=== PATIENT | female | born 1960 | race Caucasian/White ===

== ENCOUNTER 2025-01-13 06:03 | Day surgery (SDC) | payer MEDICARE, OTHER ==
--- NOTE | 2025-01-08 11:11 | ELECTROCARDIOGRAPH REPORT ---
[facility] Test Date: 2025-01-08 Test Time: 11:09:22 Pat Name: MARYBETH GOODSON Department: [facility]-PRE-OP Patient ID: [id number] Room: Gender: F Photograph Printer: : 1960 Requested By: JOVANNI DAVIDSON Order Number: [id number] Reading MD: Dr. DEBRA Cormier Measurements Intervals [place] Rate: 56 P: 22 KS: 166 QRS: 40 QRSD: 98 T: 20 QT: 430 QTc: 416 Interpretive Statements Sinus bradycardia Electronically Signed On 01-08-2025 16:51:[address] DEBRA Cormier Please click the below link to view image of tracing.
[2025-01-08 11:23] LABS: MEAN PLATELET VOLUME 7.7 FL (7.4-10.4); PRE OP HEMATOCRIT 44.4 % (35.0-45.0); PRE OP HEMOGLOBIN 14.6 g/dL (12.0-16.0); PRE OP PLATELET COUNT 296 X10'3 (140-440); PRE OP WHITE BLOOD COUNT 7.3 10'3 (4.8-10.8); RED CELL DISTRIBUTION WIDTH 13.1 % (11.5-14.5)
[2025-01-08 11:48] LABS: CREATININE 0.69 MG/DL (0.40-0.90); PRE OP ALT 24 U/L (30-65); PRE OP ANION GAP 2 (8-16); PRE OP AST 18 U/L (10-37); PRE OP BILIRUB, TOTAL 0.6 MG/DL (0.0-1.0); PRE OP GLUCOSE 96 MG/DL (70-104); PRE OP POTASSIUM 3.9 MMOL/L (3.4-5.1); PRE OP SODIUM 140 MMOL/L (135-145); TOTAL CARBON DIOXIDE 32.8 MMOL/L (24-32); eGFR 85 ML/MIN
[~2025-01-13] VITALS: Ht 154.9 cm; Wt 68.9 kg
[2025-01-13] VITALS (8 sets, daily range): BP systolic 119–156; BP diastolic 74–91; PULSE 46–69; RESP 8–16; TEMP 97.7; O2SAT 97–100
[2025-01-13] MEDS: ceFAZolin 2gm/dext,iso 50mL 50 ML IV ONE (05:30)
[~2025-01-13 06:03] MED LIST: CLOB15CR11 TOP; ESTR10TA4 VG; LEVO100T78 PO
[2025-01-13] MEDS: ringers solution, lacted 1,000 ML IV SCH (06:40)
[2025-01-13] MEDS ORDERED: LIDOcaine 1%/PF 5ML 10 MG/ML VIAL ONE (06:44)
[2025-01-13] MEDS ORDERED: BUPIVAcaine/PF 2.5mg/ml (0.25%) 10ml vial ONE (06:45)
[2025-01-13] MEDS ORDERED: ringers solution, lacted 1,000 ML IV SCH (08:20)
[2025-01-13] MEDS ORDERED: HYDROmorphone/PF 0.2 MG/ML SYRINGE IV PRN ×2 (08:20)
[2025-01-13] MEDS ORDERED: labetalol 20mg/4ml (5mg/ml) syringe IV PRN (08:20)
[2025-01-13] MEDS ORDERED: acetaminophen 1,000mg/100ml IV 100 ML IV PRN (08:20)
[2025-01-13] MEDS ORDERED: hydrALAZINE 20mg/ml inj. IV PRN (08:20)
[2025-01-13] MEDS ORDERED: morphine 4 MG/ML inj SYRINge IV PRN (08:20)
[2025-01-13] MEDS ORDERED: ondansetron/PF 4mg/2ml inj IV PRN (08:20)
[2025-01-13] MEDS: BUPIVAcaine/PF 2.5mg/ml (0.25%) 10ml vial IJ ONE (08:24)
[2025-01-13] MEDS: LIDOcaine 1% 30ml preserv. free vial IJ ONE (08:24)
[2025-01-13] MEDS ORDERED: fentaNYL/PF 50MCG/1 ML 2ML syringe ONE (08:27)
--- NOTE | 2025-01-13 08:27 | HISTORY AND PHYSICAL ---
History & Physical Providers to ~ History of Present Illness Reason for Admit\Complaint: Left scapula mass History of Present Illness Interval history and physical exam Patient here today for elective removal of the subcutaneous tumor of the left upper back/scapula She denies any change in her past medical history since she was seen in the office last month (please see previous history and physical exam for all pert inent details) She is scheduled for excision of a left back/scapula subcutaneous tumor estimated to be about 3-4 cm Allergies: Coded Allergies: avocado (Verified Allergy, Severe, THROAT CLOSES, 01/12/25) Home Medications Home Medications Active Reported Yuvafem (Estradiol) 10 Mcg Tablet 10 Mcg VG SUNDAY AND SUNDAY Clobetasol Emollient 0.05% Crm (Clobetasol Propionate) 0.05 % Cream..g. 1 Applic TOP 3XWEEKLY Levoxyl (Levothyroxine Sodium) 100 Mcg Tablet 1 Tab PO DAILY Exam General: 64-year-old female in no acute HEENT: Distress Chest: Lungs clear to auscultation bilaterally Along the inferior margin of the left scapula there was a mobile and palpable 3- 4 cm subcutaneous tumor This does not appear to be fixed to the underlying muscle or fascial layer There were no overlying skin changes Cardiovascular: Regular rate and rhythm without murmur Abdomen: Soft and nondistended Problems: (1) Subcutaneous mass of back Assessment & Plan: The risks, benefits, and alternatives to excision of a subcutaneous tumor of the left scapula/back were discussed with the patient. Risks include, but are not limited to, bleeding, infection, recurrence and the need for additional surgical procedures. Patient verbalized understanding and wishes to proceed with surgery. We will do so today as scheduled JOVANNI DAVIDSON MD Jan 13, 2025 08:27
[2025-01-13] MEDS ORDERED: midazolam 1 mg/ML 2ml injection ONE (08:46)
[2025-01-13] MEDS ORDERED: dexamethasone sod phosphate 4mg/ml inj. ONE (08:46)
[2025-01-13] MEDS ORDERED: propofol inj 20 ML IV ONE (08:46)
[2025-01-13] MEDS ORDERED: rocuronium 10mg/ml inj IV ONE (08:46)
[2025-01-13] MEDS ORDERED: ondansetron/PF 4mg/2ml inj ONE (08:46)
[2025-01-13] MEDS ORDERED: LIDOcaine 2% (20mg/ml) 5ml vial ONE (08:47)
[2025-01-13] MEDS ORDERED: HYDROcodone/acetaminophen 5mg/325mg tablet PO PRN (09:45)
--- NOTE | 2025-01-13 11:45 | OPERATIVE REPORT ---
Operative Report Providers to CC CC: OSVALDO DAVIDSON MD ~ Date of Procedure: Jan 13, 2025 Pre-Operative Diagnosis: Left subscapular mass Post-Operative Diagnosis Left subscapular, back 3.25 cm subfascial tumor (CPT: 80029) Procedure Performed Excision of soft tissue tumor of the left back/flank, 3.25 cm, subfascial Surgeon: Osvaldo Davidson MD FACS Gold Burnisher None Anesthesiologist: Hiram Noe Type of Anesthesia: General Findings: 3 cm encapsulated subfascial tumor abutting the intercostal muscles Wound class I Complications None Prosthetics\Implants used: None Estimated Blood Loss: Minimal Specimen Removed: Left subscapular back subfascial tumor Description of Procedure: Patient was brought to the operating room and identified by the nursing staff and the attending physician. Patient had general anesthesia induced on the gurney and then placed in the prone padded position. Visible mass in the left subscapular area that had been previously marked was noted. Area at this level was prepped and draped in the standard sterile fashion. Planned surgical incision was made and local anesthetic was infiltrated along this planned incision. Incision was made and deepened down through the subcutaneous tissues. Incision was carried all the way down to the fascial layer. The mass was palpable below the fascial layer. Fascia overlying the ribs just below the left scapula was opened parallel to the ribs. Between ribs abutting the intercostal muscles, a semi encapsulated fatty tumor was encountered. This was circumferentially mobilized and dissected away from the intercostal muscles. This was passed off the field and measured at 3.25 cm in diameter. Fascia was closed as was the wound and skin in layers with absorbable suture. Dermabond was applied. Patient was awakened and taken to the postanesthesia care unit in stable condition. Counts repoted as correct: Yes OSVALDO DAVIDSON MD Jan 13, 2025 11:45
--- NOTE | 2025-01-14 15:23 | PATHOLOGY REPORT ---
[facility] [address] [place] [address] SURGICAL PATHOLOGY REPORT CaseNumber: [id number] Surgeon:Osvaldo Banerjee PA-C CLINICAL INFORMATION CLINICAL INFORMATION: Subcutaneous mass. DIAGNOSIS DIAGNOSIS: SOFT TISSUE, LEFT SUBSCAPULAR; EXCISION - MATURE ADIPOSE TISSUE, CONSISTENT WITH LIPOMA. MICROSCOPIC DESCRIPTION MICROSCOPIC DESCRIPTION: Performed. GROSS DESCRIPTION GROSS DESCRIPTION: Received in a container of formalin labeled with the patient's name, number, and "left subscapular subfascial mass" is an 8 g partially encapsulated excision of fat which measures 3 x 3 x 1.5 cm. Sectioning reveals lobulated mature-appearing adipose tissue without areas of hemorrhage, nodularity, or necrosis. Program Arranger sections are submitted as A1. The time at which the specimen was removed was 0855. The time at which the specimen was placed in formalin was 09. ([facility]) Electronically signed by: Stanislav Castellano, 01/14/2025 2:49:00 PM
== END 2025-01-13 10:40 | disposition home or self-care (01) ==
LOC: PAS 06:03
PROVIDERS: ATTEND Surgery
DX: R22.32 Localized swelling, mass and lump, left upper limb (principal); M79.89 Other specified soft tissue disorders; E11.9 Type 2 diabetes mellitus without complications; E03.9 Hypothyroidism, unspecified; E66.9 Obesity, unspecified; G47.30 Sleep apnea, unspecified; J45.909 Unspecified asthma, uncomplicated; I25.2 Old myocardial infarction; Z79.890 Hormone replacement therapy; Z79.899 Other long term (current) drug therapy; Z68.28 Body mass index [BMI] 28.0-28.9, adult; Z98.890 Other specified postprocedural states; Z91.018 Allergy to other foods
CPT/HCPCS: 23076; 36415; 80053; 82948; 85025; 93005; A4215; A4618; A7000; J1100; J2003; J2250; J2405; J2704; J3010; J3490; J7030; J7120; Z7506; Z7508; Z7512; Z7610

== ENCOUNTER 2025-02-02 05:35 | Day surgery (SDC) | payer MEDICARE, OTHER ==
[~2025-02-02] VITALS: Ht 154.9 cm; Wt 69.5 kg
[~2025-02-02 05:35] MED LIST changes: -CLOB15CR11 TOP; +CLOB15OI21 TOP
[2025-02-02 05:50] VITALS: BP 125/69; PULSE 64; RESP 15; RESP 16; TEMP 96.9; O2SAT 96
[2025-02-02] MEDS: ceFAZolin 2gm/dext,iso 50mL 50 ML IV ONE (06:19)
[2025-02-02] MEDS: ringers solution, lacted 1,000 ML IV SCH (06:19)
[2025-02-02] MEDS ORDERED: LIDOcaine 1% 30ml preserv. free vial ONE (06:44)
[2025-02-02] MEDS ORDERED: BUPIVAcaine 2.5mg/ml inj 50ml vial (contains preservative) ONE (06:44)
[2025-02-02 06:49] LABS: MEAN PLATELET VOLUME 8.3 FL (7.4-10.4); PRE OP HEMATOCRIT 39.5 % (35.0-45.0); PRE OP HEMOGLOBIN 13.2 g/dL (12.0-16.0); PRE OP PLATELET COUNT 275 X10'3 (140-440); PRE OP WHITE BLOOD COUNT 6.4 10'3 (4.8-10.8); RED CELL DISTRIBUTION WIDTH 13.0 % (11.5-14.5)
[2025-02-02 07:09] LABS: CREATININE 0.70 MG/DL (0.40-0.90); PRE OP ALT 19 U/L (30-65); PRE OP ANION GAP 6 (8-16); PRE OP AST 16 U/L (10-37); PRE OP BILIRUB, TOTAL 0.3 MG/DL (0.0-1.0); PRE OP GLUCOSE 102 MG/DL (70-104); PRE OP POTASSIUM 3.6 MMOL/L (3.4-5.1); PRE OP SODIUM 143 MMOL/L (135-145); TOTAL CARBON DIOXIDE 30.3 MMOL/L (24-32); eCRCL 60 ML/MIN; eGFR 84 ML/MIN
--- NOTE | 2025-02-02 07:20 | HISTORY AND PHYSICAL ---
History & Physical Providers to ~ History of Present Illness Reason for Admit\Complaint: Left upper back/scapular/posterior axillary mass History of Present Illness Patient was scheduled to have a left scapular mass removed about three weeks ago. She was taken in the operating room. Prior to surgery, when marking the lesion, the lesion that was marked was not the one she anticipated having removed. While it was in the same geographical area, it was several inches below the mesh she is most concerned about. A 3 x 3 cm lipoma was removed at that time over the inferior scapula, while patient was anticipating having the mass removed from the lateral aspect of her scapula. My mistake was recognized in the office two weeks after surgery. She is here today to have the 2nd lesion removed. She denies any change in her past medical history since she was seen at that previous visit (please see previous history and physical exam for all pertinent details) Allergies: Coded Allergies: avocado (Verified Allergy, Severe, THROAT CLOSES, 01/12/25) Home Medications Home Medications Active Reported Clobetasol Propionate 0.05 % Oint...g. 1 Applic TOP 3XPER WEEK apply to affected area(s) Yuvafem (Estradiol) 10 Mcg Tablet 10 Mcg VG SUNDAY AND SUNDAY Levoxyl (Levothyroxine Sodium) 100 Mcg Tablet 1 Tab PO DAILY ROS ROS Reviewed and negative Exam General: 64-year-old female in no acute distress Chest: Lungs clear to auscultation bilaterally On the mid lateral scapula/posterior axilla is a palpable, mobile mass/subcutaneous tumor. The site is marked with indelible ink Cardiovascular: Regular rate and rhythm without murmurs Diagnostic Data Last Recorded Lab Results: 02/02/25 0630 02/02/25 0630 Problems: (1) Subcutaneous mass of back Assessment & Plan: The risks, benefits, and alternatives to excision of left upper back/posterior axillary subcutaneous tumor were discussed with the patient and her . Risks include, but are not limited to, bleeding, infection, persistent pain and the need for additional surgery. Patient verbalized understanding and wishes to proceed with surgery. We will do so today as scheduled JOVANNI DAVIDSON MD Feb 02, 2025 07:20
[2025-02-02] MEDS ORDERED: fentaNYL/PF 50MCG/1 ML 2ML syringe ONE (07:31)
[2025-02-02] MEDS ORDERED: midazolam 1 mg/ML 2ml injection ONE (07:31)
[2025-02-02] MEDS ORDERED: propofol inj 20 ML IV ONE (07:44)
[2025-02-02] MEDS ORDERED: LIDOcaine 2% (20mg/ml) 5ml vial ONE (07:44)
[2025-02-02] MEDS ORDERED: dexamethasone sod phosphate 4mg/ml inj. ONE (07:47)
[2025-02-02] MEDS: BUPIVAcaine/PF 5 MG/ML 10ML VIAL IJ ONE (08:01)
[2025-02-02] MEDS: LIDOcaine 1% 30ml preserv. free vial IJ ONE (08:01)
[2025-02-02] MEDS ORDERED: ondansetron/PF 4mg/2ml inj ONE (08:15)
[2025-02-02] MEDS ORDERED: HYDROcodone/acetaminophen 5mg/325mg tablet PO PRN (08:25)
--- NOTE | 2025-02-02 08:26 | OPERATIVE REPORT ---
Operative Report Providers to CC: OSVALDO DAVIDSON MD ~ Date of Procedure: Feb 02, 2025 Pre-Operative Diagnosis: Left lateral scapular/posterior axillary subcutaneous tumor Post-Operative Diagnosis 11 x 4 cm, Left lateral scapular/posterior axillary subcutaneous tumor Procedure Performed Excision 11 x 4 cm left lateral scapular/posterior axillary subcutaneous tumor Surgeon: Osvaldo Davidson MD FACS Material Attendant None Anesthesiologist: Rikki Amador Type of Anesthesia: General Findings: Encapsulated, lobular fatty tumor consistent with benign lipoma measuring 11 x 4 cm Complications None Prosthetics\Implants used: None Estimated Blood Loss: Minimal Specimen Removed: Left posterior axillary/lateral scapular subcutaneous 11 x 4 cm subcutaneous tumor Description of Procedure: Patient was brought to the operating room and identified by the nursing staff and the attending physician. Patient was placed supine and general anesthesia was induced. Patient was then moved into the right lateral decubitus position. All bony prominences were padded and secured and an axillary support pad was placed. The marked site in the upper left back associated with the lateral asp ect of the scapula and posterior aspect of the axilla was in the operative field and the anitha was clearly visualized. Using Jesus's lines of cleavage, a planned incision was made and marked with indelible ink. Preoperative antibiotics were given. Local anesthetic was infiltrated after the area was prepped and draped in the standard sterile fashion. Incision was made with scalpel and deepened down through the subcutaneous tissues with electrocautery. An encapsulated fatty tumor was encountered. This traversed anteriorly towards the axilla and posteriorly towards the scapula. It was lobulated and had an irregular shape. Each of the lobules was mobilized and the mass was removed intact measuring 11 x 4 cm. It appeared to be a benign lipoma. The wound was irrigated and hemostasis assured. Incision was closed in layers with absorbable sutures and dressed with Dermabond. Patient was awakened and taken to the postanesthesia care unit in stable condition. Counts repoted as correct: Yes OSVALDO DAVIDSON MD Feb 02, 2025 08:26
[2025-02-02 08:28] VITALS: BP 129/78; PULSE 76; RESP 16; O2SAT 100
[2025-02-02 08:40] VITALS: BP 117/87; PULSE 71; RESP 15; O2SAT 98
[2025-02-02] MEDS ORDERED: rocuronium 10mg/ml inj IV ONE (08:42)
[2025-02-02 08:50] VITALS: BP 135/75; PULSE 65; RESP 16; O2SAT 97
[2025-02-02] MEDS ORDERED: labetalol 20mg/4ml (5mg/ml) syringe IV PRN (08:55)
[2025-02-02] MEDS ORDERED: enalaprilat 1.25mg/ml 2ml vial IV PRN (08:55)
[2025-02-02] MEDS ORDERED: ringers solution, lacted 1,000 ML IV SCH (08:55)
[2025-02-02] MEDS ORDERED: morphine 4 MG/ML inj SYRINge IV PRN (08:55)
[2025-02-02] MEDS ORDERED: HYDROmorphone/PF 0.2 MG/ML SYRINGE IV PRN ×2 (08:55)
[2025-02-02] MEDS ORDERED: fentaNYL/PF 50MCG/1 ML 2ML syringe IV PRN ×2 (08:55)
[2025-02-02] MEDS ORDERED: ondansetron/PF 4mg/2ml inj IV PRN (08:55)
[2025-02-02 09:00] VITALS: BP 123/68; PULSE 65; RESP 15; O2SAT 98
== END 2025-02-02 09:28 | disposition home or self-care (01) ==
LOC: PAS 05:35
PROVIDERS: ATTEND Surgery
DX: M79.89 Other specified soft tissue disorders (principal); E03.9 Hypothyroidism, unspecified; I25.2 Old myocardial infarction; R73.09 Other abnormal glucose; Z79.890 Hormone replacement therapy
CPT/HCPCS: 24071; 36415; 80053; 82948; 85025; A4215; A4618; A7000; J0665; J1100; J2003; J2250; J2405; J2704; J3010; J3490; J7030; J7120; Z7506; Z7508; Z7512; Z7610